=== PATIENT | female | born 1975 | race Caucasian/White ===

== ENCOUNTER 2019-01-11 23:38 | Day surgery (SDC) ==
[2019-01-12 00:07] LABS: URINE SOURCE CLEAN CATCH
[2019-01-12 00:15] LABS: BASO# 0.05 X1000 (0.0-0.2); BASO% 0.4 % (0.0-0.8); EOS% 2.5 % (0.0-10.0); HEMATOCRIT 44.7 % (37.0-47.0); HEMOGLOBIN 15.9 g/dL (12.0-16.0); IMM GRAN# 0.04 X1000 (0.0-0.04); IMM GRAN% 0.3 % (0.0-0.5); LYMPH# 3.55 X1000 (1.2-3.4); LYMPH% 29.5 % (20.5-51.1); MCH 29.9 PG (27-31); MCHC 35.6 g/dL (33-37); MONO# 0.74 X1000 (0.11-0.59); MONO% 6.1 % (1.7-9.3); MPV 9.1 FL (7.4-10.4); NEUT# 7.37 X1000 (1.4-6.5); NEUT% 61.2 % (42.2-75.2); PLT 364 X1000 (130-400); RBC 5.32 XMIL (4.2-5.4); RDW 11.8 % (11.5-14.5); WBC 12.05 X1000 (4.8-10.8)
[2019-01-12] MEDS ORDERED: MORPHINE IV ONE (00:37)
--- NOTE | 2019-01-12 00:47 | PROVIDER DOCUMENTATION ---
HPI-Abdominal Pain/GI Problem - General Chief Complaint: Abdominal Pain Stated Complaint: PAIN IN RIGHT SIDE Time Seen by Provider: 01/11/19 23:46 Source: patient Allergies/Adverse Reactions: Patient Allergies Allergy/AdvReac Type Severity Reaction Status Date / Time No Known Allergies Allergy Verified 01/12/19 00:49 Home Medications: Home Medication List Medication Instructions Recorded Confirmed Last Taken Type Hydrocodone/Acetaminophen [[place] 1 ea PO Q6H PRN #30 tab 01/12/19 Unknown Rx 5-325 Tablet] - History of Present Illness-ABD Nature of Presenting Problems: 43 YO F no pmh presents with worsening RLQ pain x 36 hours. pt states it started while she was at a foot ball game. Has some associated nausea. Denies vomiting, new foods, or sick contacts. hx of 2 prior c/s. Pain is not assoicated with eating. last meal at 1700 today. denies urinary complaints. Abdominal Pain Onset Location: reports: RLQ Pain Radiation: reports: flank, groin Quality of Pain: reports: sharp Severity in ED: reports: moderate Onset/Duration: reports: other (36 hours ago) Timing: reports: still present, constant Activities at Onset: reports: none Exposure to sick contacts?: No Modifying Factors: improves with: nothing Associated Symptoms: denies: diarrhea, fever/chills, seizure, shortness of breath Last BM: this morning Dark Stools Present?: reports: none noticed Review of Systems - Adult - REVIEW OF SYSTEMS - ADULT Constitutional: denies: chills, fever Eyes: reports: no symptoms reported Ears, Nose, Mouth & Throat: reports: no symptoms reported Cardiovascular: reports: no symptoms reported Respiratory: denies: shortness of breath, wheezing Gastrointestinal: reports: see HPI, abdominal pain, constipation, nausea. denies: vomiting Genitourinary: denies: dysuria, discharge, hematuria Musculoskeletal: reports: no symptoms reported Integumentary: reports: no symptoms reported Neurological: reports: no symptoms reported Past History - Adult - PAST MEDICAL HISTORY-ADULT Review of Records: reports: Old Records Reviewed, Medications Reviewed Major Childhood Illnesses: reports: denies history Cardiovascular: reports: denies history Respiratory: reports: denies history Gastrointestinal: reports: denies history Obstetrical/Gynecological: reports: denies history Genitourinary: reports: denies history Musculoskeletal: reports: denies history - PRIOR SURGERIES/PROCEDURES Surgical/Procedure History: reports: , other (uterine ablation). denies: recent surgery - FAMILY HISTORY Family History: reviewed, not pertinent - SOCIAL HISTORY Smoking: cigarettes, less than 1 pack/day Substance Use: denies Living Situation: family Physical Exam-General - PHYSICAL EXAM-ADULT Initial Vital Signs Reviewed: Yes - CONSTITUTIONAL General Appearance: alert, no apparent distress - EYES Eyes: PERRL/EOMI, pink conjunctivae - HEAD, EARS, NOSE, MOUTH & THROAT HENMT: normocephalic/atraumatic, moist mucous membranes - NECK Neck: full range of motion, supple - RESPIRATORY Respiratory: lungs clear, normal breath sounds - CARDIOVASCULAR Cardiovascular: regular rate, rhythm, no edema, no murmur - GASTROINTESTINAL (ABDOMEN) Abdominal Exam: soft, Rovsing's sign. negative: distended, hernia, mass - MUSCULOSKELETAL Back Exam: no CVA tenderness - SKIN Integumentary: normal color, normal turgor, warm/dry - NEUROLOGIC Neurologic: grossly normal - PSYCHIATRIC Psych/Mental Status: normal mood/affect Progress - PLAN OF CARE/RESULTS Progress/Plan/Lab Results: Vital Signs - 8 hr 01/11/19 23:42 Temperature 98.2 F Pulse Rate 94 H Respiratory Rate 16 Blood Pressure 148/95 O2 Sat by Pulse Oximetry 97 Bedside Urine ED: Urine Bedside Start: 01/11/19 23:48 Freq: ORDERED Status: Active Protocol: Activity Type Activity Date Activity User E-Sign Co-Sign Detail Recorded Client Recorded Date Recorded By Document 01/11/19 23:54 [id number] 01/11/19 23:54 [id number] 01/11/19 23:54 Point of Care [Bedside Point of Care] -Lot # [id number] - Results Negative -Control Line Visible? Yes Laboratory Results - last 24 hr 01/11/19 01/11/19 23:50 23:50 WBC 12.05 H RBC 5.32 Hgb 15.9 Hct 44.7 MCV 84.0 MCH 29.9 MCHC 35.6 RDW Std Deviation 11.8 Plt Count 364 MPV 9.1 Immature Gran % (Auto) 0.3 Neut % (Auto) 61.2 Lymph % (Auto) 29.5 [place] % (Auto) 6.1 Eos % (Auto) 2.5 Baso % (Auto) 0.4 Immature Gran # (Auto) 0.04 Neut # (Auto) 7.37 H Lymph # (Auto) 3.55 H [place] # (Auto) 0.74 H Eos # (Auto) 0.30 Baso # (Auto) 0.05 Urine Source CLEAN CATCH Orders Category Date Time Status ED: Urine Bedside ORDERED Care 01/11/19 23:48 Active NPO Diet 01/11/19 23:[address] ABDOMEN/PELVIS W/O CONTRAST [CT] Stat Exams 01/12/19 00:35 Ordered AMYLASE [CHEM] Stat Lab 01/11/19 23:50 Received CBC WITH ELECTRONIC DIFF [HEME] Stat Lab 01/11/19 23:50 Completed COMPREHENSIVE METABOLIC PANEL [CHEM] Stat Lab 01/11/19 23:50 Received LIPASE [CHEM] Stat Lab 01/11/19 23:50 Received URINALYSIS W/POSS RFLX CULT [URINALYSIS] Stat Lab 01/11/19 23:50 Results Morphine Med 01/12/19 00:37 Discontinued 4 mg IV NOW ONE Result Diagrams: 01/11/19 23:50 01/11/19 23:50 - REASSESSMENT Reassessment #1 Time Reassessed: 01:53 Status: unchanged (pt states pain still remains, will give dilaudid) - CT/MRI 1 CT Study: Abdomen, Pelvis Impression: See EMR Report (1. acute appendicitis without abscess) - CONSULTS/PCP/HOSPITALIST Notification #1 *Consult/PCP/Hospitalist*: Dr. Heller accepts Time Discussed: 01:53 Consult Disposition: Will see in ED (states to admit to his service) Departure - Departure Date of Disposition Decision: 01/12/19 Time of Disposition Decision: 01:54 DIAGNOSIS: Acute appendicitis Disposition: ADMITTED INPATIENT 09 Certified Medical Emergency: Emergent Condition: Stable - Critical Care Note This patient required my direct & personal management of CC.: No Attestation - Physician/ ADDISON Attestation The physician spent face to face time with patient:: Yes Advanced Practice Provider documentation review:: Supervising physician onsite and consulted in the evaluation and care of this patient. The physician did have a face to face encounter with the patient.
[2019-01-12 01:01] LABS: AGAP 15; ALB/GLOB RATIO 1.6; ALBUMIN 4.6 g/dL (3.5-5.0); ALKALINE PHOSPHATASE 79 U/L (32-104); AMYLASE 53 U/L (20-200); BUN 14 mg/dL (8-22); CALCIUM 9.6 mg/dL (8.8-10.2); CHLORIDE 101 mmol/L (98-107); COSMO 277; CREATININE 0.8 mg/dL (0.5-0.9); ESTIMATED GFR > 60; GLUCOSE 114 mg/dL (70-104); GOT 13 U/L (10-30); GPT 15 U/L (10-36); LIPASE 28 U/L (13-60); POTASSIUM 3.9 mmol/L (3.5-5.1); SODIUM 138 mmol/L (136-145); TCO2 22 mmol/L (25-35); TOTAL BILIRUBIN 0.17 mg/dL (0.20-1.00); TOTAL PROTEIN 7.5 g/dL (6.3-8.3)
[2019-01-12 01:03] LABS: BILIRUBIN URINE NEGATIVE (NEGATIVE); BLOOD URINE MODERATE (NEGATIVE); COLOR YELLOW; GLUCOSE URINE NEGATIVE (NEGATIVE); KETONE URINE TRACE mg/dL (NEGATIVE); LEUKOCYTES URINE NEGATIVE (NEGATIVE); NITRITE URINE NEGATIVE (NEGATIVE); PROTEIN URINE TRACE mg/dL (NEGATIVE); SP GRAVITY URINE 1.028; TURBIDITY URINE CLEAR (CLEAR); UR EPITHELIAL CELLS <10 /HPF (<10); URINE BACTERIA NEGATIVE /HPF; URINE RBC 20-40 /HPF (<10); URINE WBC <10 /HPF (<10); UROBILINOGEN URINE NORMAL (NORMAL)
[2019-01-12] MEDS ORDERED: ZOFRAN IV ONE (01:38)
[2019-01-12] MEDS ORDERED: ZOSYN 3.375 GM in NS 50 ML IV ONE (01:38)
[2019-01-12] MEDS ORDERED: NS 1,000 ML IV ONE (01:47)
[2019-01-12] MEDS ORDERED: DILAUDID IV ONE (01:47)
[2019-01-12] MEDS ORDERED: DILAUDID IV PRN (01:47)
[2019-01-12] MEDS ORDERED: MORPHINE IV PRN (01:55)
[2019-01-12] MEDS ORDERED: TORADOL IV PRN (01:55)
[2019-01-12] MEDS: ZOSYN 4.5 GM in NS 100 ML IV SCH ×2 (02:54→08:00)
--- NOTE | 2019-01-12 06:45 | Diag Imaging Result Doc PS360 ---
CT ABDOMEN/PELVIS W/O CONTRAST - 01/12/2019 INDICATION: RLQ pain COMPARISON: None FINDINGS: The lung bases are clear and the heart size is normal. Abdominal organs are all normal. No radiodense renal stones. No hydronephrosis or hydroureter. The appendix demonstrates some enlargement measuring 9-10 mm. There is some slight surrounding fat stranding compatible with inflammation. No free air surrounding fluid. There is trace pelvic free fluid presumably physiologic. Urinary bladder, uterus, ovaries, and rectum are grossly normal. Bones are intact. IMPRESSION: Acute appendicitis. No evidence of complication. This report was discussed with Dr. Delgado on 01/12/2019 at 1:38 AM and was readback. This exam was performed using automated exposure control, adjustment of mA or kV according to patient size, and/or use of iterative reconstruction technique Electronically signed by Jason Zamorano 01/12/2019 6:43 AM
--- NOTE | 2019-01-12 06:50 | HISTORY AND PHYSICAL ---
ADMITTING DIAGNOSIS: Appendicitis. HISTORY OF PRESENT ILLNESS: A 43-year-old female presenting with a 2-day history of right lower quadrant pain. She said it started while she was at a football game. She has had some associated nausea, but no vomiting. It is described as being sharp and moderate in intensity in the right lower quadrant. She was seen emergency department and had a CT scan that showed appendicitis. No other intra-abdominal pathology was noted. PAST MEDICAL HISTORY: None. PAST SURGICAL HISTORY: , tubal ligation and ablation. SOCIAL HISTORY: Former smoker. FAMILY HISTORY: Reviewed with patient and noncontributory. ALLERGIES: None. HOME MEDICATIONS: None. REVIEW OF SYSTEMS: A full 14 systems reviewed and negative except as specified in HPI. PHYSICAL EXAMINATION: VITAL SIGNS: Patient is currently afebrile. Her vital signs stable. GENERAL EXAM: No acute distress but appears uncomfortable. female, looks stated age. HEENT: Normocephalic, atraumatic. Pupils equal, round, reactive to light. Mucous membranes moist. Oropharynx benign. NECK: Supple, trachea midline. CARDIOVASCULAR: Regular rate and rhythm. LUNGS: Grossly clear. ABDOMEN: Soft, tender to palpation right lower quadrant. Positive McBurney's point. Positive Rovsing sign. EXTREMITIES: Moves all extremities. NEUROLOGIC: Grossly intact. SKIN: No signs of jaundice. VASCULAR: All extremities perfused. LABORATORY: White blood cell count slightly elevated at 12. Remainder of labs reviewed. CT scan independently reviewed and radiology report reviewed. ASSESSMENT/PLAN: A 43-year-old female with appendicitis. Appendicitis: At this time, we will plan on surgical intervention. Discussed with her the risks, benefits, and alternatives, risks including, but not limited to bleeding, infection, risk of anesthesia, risk of injury to other organs, breakdown of the staple line all discussed, the need for a washout and possible drain also discussed. She voiced understanding. We will proceed with surgery today. cc: Anthony Heller MD
[2019-01-12] MEDS ORDERED: LR 1,000 ML ONE (06:58)
[2019-01-12] MEDS ORDERED: DIPRIVAN 1% ONE (07:36)
[2019-01-12] MEDS ORDERED: FENTANYL ONE (07:36)
[2019-01-12] MEDS: SENSORCAINE 0.25%/EPI 1:200,000 ONE ×2 (08:11→08:25)
[2019-01-12] MEDS ORDERED: XYLOCAINE-MPF 2% ONE (08:26)
[2019-01-12] MEDS ORDERED: ROBINUL ONE (08:26)
[2019-01-12] MEDS ORDERED: QUELICIN (DOSE) ONE (08:26)
[2019-01-12] MEDS ORDERED: ZEMURON ONE (08:26)
[2019-01-12] MEDS ORDERED: ZOFRAN ONE (08:26)
[2019-01-12] MEDS ORDERED: NEOSTIGMINE ONE (08:26)
[2019-01-12] MEDS ORDERED: DECADRON ONE (08:26)
[2019-01-12] MEDS ORDERED: BRIDION ONE (08:44)
[2019-01-12] MEDS: PHENERGAN ONE ×4 (08:58→09:07)
[2019-01-12] MEDS: DILAUDID ONE ×4 (08:58→09:16)
[2019-01-12 09:00] LABS: URINE SOURCE CATH
[2019-01-12] MEDS ORDERED: LR 500 ML ONE (09:00)
[2019-01-12 09:11] LABS: BILIRUBIN URINE NEGATIVE (NEGATIVE); BLOOD URINE MODERATE (NEGATIVE); COLOR YELLOW; GLUCOSE URINE NEGATIVE (NEGATIVE); KETONE URINE NEGATIVE (NEGATIVE); LEUKOCYTES URINE NEGATIVE (NEGATIVE); NITRITE URINE NEGATIVE (NEGATIVE); PH URINE 5.5; PROTEIN URINE NEGATIVE (NEGATIVE); SP GRAVITY URINE 1.022; TURBIDITY URINE CLEAR (CLEAR); UROBILINOGEN URINE NORMAL (NORMAL)
[2019-01-12 09:13] LABS: UR EPITHELIAL CELLS >10 /HPF (<10); URINE BACTERIA NEGATIVE /HPF; URINE WBC <10 /HPF (<10)
--- NOTE | 2019-01-12 09:50 | OPERATIVE NOTE ---
PROCEDURE DATE: 01/12/2019 PREOPERATIVE DIAGNOSIS: Appendicitis. POSTOPERATIVE DIAGNOSIS: Acute appendicitis. PROCEDURE: Laparoscopic appendectomy. SURGEON: Anthony Heller MD. OPHTHALMIC TECHNICIAN: None. ANESTHESIA: General tracheal. INTRAOPERATIVE FINDINGS: Appendicitis. COMPLICATIONS: None at time of dictation. ESTIMATED BLOOD LOSS: 10 mL. SPECIMEN: Removed appendix. BRIEF HISTORY: A 43-year-old female presenting with right lower quadrant pain for several days. [place] it was appendicitis. The risks, benefits, alternatives for the procedure were discussed and documented in the chart. All questions answered. DESCRIPTION OF PROCEDURE: After informed consent was obtained, the patient was brought to the operative theater, transferred to the operative table, placed supine in position. General endotracheal anesthesia was then performed without complication. A formal time-out was then performed confirming patient, date, procedure. All were in agreement. At that time, attention was given to the abdomen. An infraumbilical incision was made, through which using Optiview technique, we inserted a 12 mm trocar, connected insufflation, and pneumoperitoneum was achieved. Under direct visualization, placed 2 more trocars, one 5 mm in right upper quadrant, one 5 mm in left lower quadrant. Using these, the appendix was identified. It was grasped. It was inflamed, consistent with appendicitis. We had to use the LigaSure to take down the mesoappendix and we were able to elevate it enough that we got across the base of the appendix with a stapler. We fired across it with a good load. It appeared to be intact. The staple line appeared to be intact. We irrigated out the abdomen and did not see any succus or stool. I did not see any active bleeding. We placed the appendix in an endobag and brought it out through the infraumbilical incision. The infraumbilical incision and fascial defects were offset so there was no air that escaped out we did not have to close it. We then removed all trocars, disconnected insufflation. Pneumoperitoneum was released. All skin incisions closed with 4-0 Monocryl. The patient tolerated the procedure well. She will be discharged home today. cc: Anthony Heller MD
[2019-01-12] MEDS ORDERED: NORCO-5 PO PRN (10:32)
[2019-01-12 12:03] VITALS: BP 109/58
== END 2019-01-12 12:20 | disposition home or self-care (01) ==
LOC: ED 23:38 → OPS 23:39 → 4N 01-12 03:07 → INTOOBSV 01-12 03:07 → OPS 01-12 12:20
PROVIDERS: ATTEND Surgery